=== PATIENT | female | born 1990 | race Caucasian/White ===

== ENCOUNTER 2023-05-18 09:48 | Day surgery (SDC) | payer MEDICAID ==
[2023-05-10 10:44] LABS: BASOPHILS % (AUTO) 0.5 % (0.0-2.0); EOSINOPHILS # (AUTO) 0.2 K/uL (0-0.4); HEMATOCRIT 40.5 % (36-48); HEMOGLOBIN 13.7 g/dL (12.0-16.0); LYMPHOCYTES # (AUTO) 2.6 K/uL (2.5-16.5); LYMPHOCYTES % (AUTO) 37.9 % (20.5-51.1); MEAN CORPUSCULAR HEMOGLOBIN 29 pg (27-31); MEAN CORPUSCULAR HGB CONC 34 g/dL (33-37); MEAN CORPUSCULAR VOLUME 85.9 fL (80-94); MONOCYTES # (AUTO) 0.4 K/uL (0.8-1.0); MONOCYTES % (AUTO) 6.1 % (1.7-9.3); NEUTROPHILS # (AUTO) 3.6 K/uL (1.8-7.7); NEUTROPHILS % (AUTO) 52.5 % (42.2-75.2); PLATELET COUNT (AUTO) 275 K/uL (140-450); RED BLOOD CELL COUNT(AUTO) 4.72 MIL/uL (4.20-5.40); RED CELL DISTRIBUTION WIDTH 13.8 % (11.6-13.7); WHITE BLOOD COUNT (AUTO) 6.8 K/uL (4.8-10.8)
[2023-05-10 11:08] LABS: ALBUMIN 3.6 g/dL (3.4-5.0); ANION GAP -1.1 (8-16); CARBON DIOXIDE 29.4 mmol/L (21-32); CREATININE 0.7 mg/dL (0.6-1.3); POTASSIUM 4.3 mmol/L (3.5-5.1); TOTAL BILIRUBIN 0.5 mg/dL (0.0-1.0)
[~2023-05-18] VITALS: Ht 177.8 cm; Wt 118.4 kg
[2023-05-18] MEDS ORDERED: SUCCINYLCHOLINE CHLORIDE 200 MG/10 ML VIAL IVP ONE (11:13)
[2023-05-18] MEDS ORDERED: fentaNYL citrate 0.05 MG/ML VIAL ONE (11:13)
[2023-05-18] MEDS ORDERED: PROPOFOL 200 MG/20 ML VIAL IV ONE (11:14)
[2023-05-18] MEDS ORDERED: SEVOFLURANE 250 ML BTL INH ONE (11:20)
[2023-05-18] MEDS ORDERED: DEXAMETHASONE 4 MG/ML VIAL IVP ONE (11:20)
[2023-05-18] MEDS ORDERED: ROCURONIUM 50 MG/5 ML VIAL IV ONE (11:33)
[2023-05-18] MEDS ORDERED: ONDANSETRON 4 MG/2 ML VIAL ONE (11:34)
[2023-05-18] MEDS ORDERED: BUPIVACAINE-MPF/EPI 0.25% 30 ML VIAL INJ ONE (11:54)
[2023-05-18] MEDS ORDERED: hydrALAZINE 20 MG/ML VIAL ONE (11:58)
[2023-05-18] MEDS ORDERED: MEPERIDINE 50 MG/ML SYR ONE (12:10)
[2023-05-18] MEDS ORDERED: SUGAMMADEX SODIUM 200 MG/2 ML VIAL IV ONE (12:28)
[2023-05-18] MEDS ORDERED: MEPERIDINE 25 MG/ML SYR ONE (12:30)
[2023-05-18] MEDS ORDERED: KETOROLAC 30 MG/ML VIAL ONE (13:33)
[2023-05-18] MEDS ORDERED: KETOROLAC 30 MG/ML VIAL IM SCH (14:00)
== END 2023-05-18 14:56 | disposition home or self-care (01) ==
LOC: MDS 09:48 → MMU 09:48 → MDS 14:56
PROVIDERS: ATTEND Obstetrics & Gynecology
DX: N83.201 Unspecified ovarian cyst, right side (principal); E66.9 Obesity, unspecified; J45.909 Unspecified asthma, uncomplicated; Z68.38 Body mass index [BMI] 38.0-38.9, adult
CPT/HCPCS: 36415; 58662; 80053; 82374; 85025; J0330; J0360; J1100; J1885; J2175; J2405; J2704; J3010; J3490; J7120; 88307